=== PATIENT | female | born 1980 | race Caucasian/White ===

== ENCOUNTER 2020-09-06 15:35 | Emergency (ER) | payer BC ==
[~2020-09-06] VITALS: Ht 152.4 cm; Wt 54.4 kg
--- NOTE | 2020-09-06 15:55 | NUR ---
BIB [facility] 8[facility],SUDDEN ANXIETY/PANIC ATTACK WHILE IN A GROCERY WITH , THINKS,IT'S DUE TO NEW SUPPLEMENT SHE'S TAKING FOR 1 WEEK. THE PATIENT IS ALERT AND ORIENTED X4. DENIES PAIN. RESPIRATION REGULAR AND UNLABORED. WILL CONTINUE TO MONITOR THE PATIENT.
[2020-09-06] MEDS: IV NS 0.9% 1,000 ML BAG IV ONE (16:08)
[2020-09-06] MEDS ORDERED: LORAZEPAM INJ 2 MG/ML VIAL ONE (16:13)
[2020-09-06] MEDS: LORAZEPAM INJ 2 MG/ML VIAL IV ONE (16:16)
[2020-09-06 16:32] LABS: BASOPHILS % (AUTO) 0.5 % (0.0-2.0); EOSINOPHILS % (AUTO) 1.4 % (0.0-6.0); HEMATOCRIT 38 % (33-45); LYMPHOCYTES # (AUTO) 1.4 K/uL (0.8-4.8); LYMPHOCYTES % (AUTO) 19.9 % (20.0-44.0); MEAN CORPUSCULAR HGB CONC 34 g/dl (31.0-36.0); MEAN CORPUSCULAR VOLUME 90 fL (82-100); MONOCYTES # (AUTO) 0.7 K/uL (0.1-1.30); MONOCYTES % (AUTO) 9.5 % (2.0-12.0); NEUTROPHILS # (AUTO) 4.9 K/uL (1.8-8.9); NEUTROPHILS % (AUTO) 68.7 % (43.0-81.0); PLATELET COUNT (AUTO) 264 K/uL (150-450); RED BLOOD CELL COUNT(AUTO) 4.27 MIL/uL (4.0-5.2); WHITE BLOOD COUNT (AUTO) 7.1 K/uL (4.3-11.0)
[2020-09-06 16:44] LABS: ALCOHOL, BLOOD < 3 mg/dL (0-0)
[2020-09-06 16:49] LABS: ALBUMIN 3.9 g/dL (3.4-5.0); BILIRUBIN,DIRECT 0.1 mg/dL (0.0-0.2); BILIRUBIN,TOTAL 0.3 mg/dL (0.2-1.0); CREATININE 0.9 mg/dL (0.6-1.3); TOTAL PROTEIN, SERUM 7.3 g/dL (6.4-8.2)
[2020-09-06 16:52] LABS: POTASSIUM 2.7 mmol/L (3.5-5.1)
[2020-09-06] MEDS: POTASSIUM CHLORIDE 20 MEQ TAB.PRT.SR PO ONE (17:00)
[2020-09-06] MEDS ORDERED: POTASSIUM CHLORIDE 20 MEQ TAB.PRT.SR PO ONE (17:00)
[2020-09-06 17:36] LABS: MAGNESIUM 1.8 mg/dL (1.8-2.4)
[2020-09-06 18:00] LABS: BILIRUBIN,URINE Negative (NEGATIVE); COLOR,URINE YELLOW (YELLOW); LEUKOCYTE ESTERASE ,URINE Negative (NEGATIVE); NITRITE, URINE Negative (NEGATIVE); PH,URINE 6.5 (5.0-8.0); PROTEIN,URINE Negative (NEGATIVE); UGLUCOSE Negative (NEGATIVE); UROBILINOGEN,URINE 0.2 EU/dL (0.2)
[2020-09-06] MEDS ORDERED: POTA10CA43 PO (18:37)
[2020-09-06 19:04] VITALS: BP 122/62
--- NOTE | 2020-09-06 19:04 | NUR ---
Patient discharged to home in stable condition. Written and verbal after care instructions given. Patient verbalizes understanding of instruction.
[2020-09-06 19:05] LABS: THYROID STIMULATING HORMONE 4.083 uIU/mL (0.358-3.74)
== END 2020-09-06 19:04 | disposition home or self-care (01) ==
LOC: ER 15:39
DX: F41.9 Anxiety disorder, unspecified (principal); E87.6 Hypokalemia
CPT/HCPCS: 36415; 80048; 80076; 80307; 80320; 81003; 83735; 84443; 84484; 84703; 85025; 93005; 96361; 96374; 99284; J2060; J7030; G0480